=== PATIENT | male | born 1985 | race Caucasian/White ===

== ENCOUNTER 2016-08-08 21:48 | Emergency (ER) | payer SELFPAY ==
[2016-08-08 23:22] VITALS: BP 135/76
== END 2016-08-08 23:22 | disposition home or self-care (01) ==
LOC: ED 21:48
DX: S93.601A Unspecified sprain of right foot, initial encounter (principal); W20.8XXA Other cause of strike by thrown, projected or falling object, initial encounter; Y93.89 Activity, other specified; Y99.8 Other external cause status; Y92.89 Other specified places as the place of occurrence of the external cause